=== PATIENT | female | born 1955 | race Caucasian/White ===

== ENCOUNTER 2022-02-20 15:35 | Outpatient (REF) | payer MEDICARE, MEDICAID, SELFPAY ==
--- NOTE | ~2022-02-20 | XR_ITS ---
EXAMINATION: CERVICAL AND THORACIC SPINE X-RAYS CLINICAL INFORMATION: Pain COMPARISON: None TECHNIQUE: 3 views of the cervical spine and 3 views of the thoracic spine FINDINGS: Cervical spine: There is mild 3 mm anterior subluxation of C3 with respect to C4. Bone alignment is otherwise normal. No fracture or dislocation. There is multilevel degenerative spondylosis and degenerative disc disease from C3-C4 to C6-C7. Prevertebral soft tissues are normal. Thoracic spine: There is mild curvature of the lower thoracic spine to the right. Alignment is otherwise normal. There is a mild T10 vertebral body compression fracture, indeterminate age. There is a mild T11 vertebral body compression fracture that appears old. There is multilevel degenerative spondylosis of the mid and lower thoracic spine. Paraspinal soft tissues are unremarkable. XR/XR thoracic spine 3V IMPRESSION: Cervical spine: Multilevel degenerative changes. Thoracic spine: Mild T10 vertebral body compression fracture, age indeterminate. Mild probably old T11 vertebral body compression fracture.
--- NOTE | ~2022-02-20 | XR_ITS ---
EXAMINATION: CERVICAL AND THORACIC SPINE X-RAYS CLINICAL INFORMATION: Pain COMPARISON: None TECHNIQUE: 3 views of the cervical spine and 3 views of the thoracic spine FINDINGS: Cervical spine: There is mild 3 mm anterior subluxation of C3 with respect to C4. Bone alignment is otherwise normal. No fracture or dislocation. There is multilevel degenerative spondylosis and degenerative disc disease from C3-C4 to C6-C7. Prevertebral soft tissues are normal. Thoracic spine: There is mild curvature of the lower thoracic spine to the right. Alignment is otherwise normal. There is a mild T10 vertebral body compression fracture, indeterminate age. There is a mild T11 vertebral body compression fracture that appears old. There is multilevel degenerative spondylosis of the mid and lower thoracic spine. Paraspinal soft tissues are unremarkable. XR/XR cervical spine 3V IMPRESSION: Cervical spine: Multilevel degenerative changes. Thoracic spine: Mild T10 vertebral body compression fracture, age indeterminate. Mild probably old T11 vertebral body compression fracture.
== END 2022-02-20 15:36 | disposition home or self-care (01) ==
LOC: HO.XRAY 15:35
PROVIDERS: PCP Internal Medicine; Visit Provider Nurse Practitioner Family
DX: S22.070A Wedge compression fracture of T9-T10 vertebra, initial encounter for closed fracture (principal); M47.812 Spondylosis without myelopathy or radiculopathy, cervical region; M81.0 Age-related osteoporosis without current pathological fracture; R10.11 Right upper quadrant pain; M79.18 Myalgia, other site
CPT/HCPCS: 72040; 72072; 99202

== ENCOUNTER 2022-03-15 15:00 | Outpatient (REF) | payer MEDICARE, MEDICAID, SELFPAY ==
[2022-03-15 16:50] LABS: Blood Urea Nitrogen 28 mg/dL (9-16); Estimated Glomerular Filt Rate 42
== END 2022-03-15 15:01 | disposition home or self-care (01) ==
LOC: HO.LAB 15:00
PROVIDERS: PCP Internal Medicine; Visit Provider Nurse Practitioner Family
DX: Z01.818 Encounter for other preprocedural examination (principal)
CPT/HCPCS: 36415; 82565; 84520

== ENCOUNTER 2022-03-20 15:08 | Outpatient (REF) | payer MEDICARE, MEDICAID, SELFPAY | END 2022-03-20 15:09 | disposition home or self-care (01) | LOC: HO.CT 15:08 | PROVIDERS: PCP Internal Medicine; Visit Provider Nurse Practitioner Family | DX: Z13.89 Encounter for screening for other disorder (principal) ==

== ENCOUNTER 2022-03-23 13:40 | Outpatient (REF) | payer MEDICARE, MEDICAID, SELFPAY ==
--- NOTE | ~2022-03-23 | CT_ITS ---
EXAMINATION: CT ABDOMEN AND PELVIS WITHOUT AND WITH CONTRAST CLINICAL INFORMATION: Family history of malignant neoplasm of digestive organs COMPARISON: None TECHNIQUE: Multidetector volumetric imaging was performed of the abdomen and pelvis before and after the IV administration of 80 mL of Omnipaque 350 intravenous contrast. Sagittal and coronal reformatted images were obtained on the technologist's workstation. This CT examination was performed using dose optimization techniques as appropriate, variously including the following: *Automated exposure control *Adjustment of mA and/or kV according to patient size (this includes techniques or standardized protocols for targeted exams where dose is matched to indication/reason for exam; i.e. extremities or head) *Use of iterative reconstruction technique DLP: 666 mGy-cm FINDINGS: LUNG BASES: At least 8 small micronodules are seen measuring between 2 and 3 mm in size bilaterally. Al images of all have been saved. The inferior aspect of a left breast implant with some calcifications is seen. Some calcification is seen in the right partially visualized breast. Heart size normal. No pleural effusions. LIVER, GALLBLADDER, AND BILIARY TREE: The liver is mildly enlarged measuring 18.2 cm in greatest cephalocaudad dimension. Attenuation is normal. 2 tiny hypodensities are seen in the liver largest 3 mm (8:13). Statistically these are cysts. No worrisome solid focal hepatic lesion or biliary ductal dilatation is present. The gallbladder is unremarkable with no evidence of radiopaque gallstones, gallbladder wall thickening, or obvious pericholecystic inflammatory changes. PANCREAS: Unremarkable SPLEEN: Unremarkable ADRENAL GLANDS: Unremarkable KIDNEYS AND URETERS: The left kidney is slightly smaller than the right and demonstrates some global cortical thinning. Bilateral renal hypodensities are seen consistent with simple cysts. No suspicious renal masses are seen. The kidneys are normal in size, shape, and attenuation. No hydronephrosis, hydroureter, or calculi seen. No perinephric stranding. BLADDER: Unremarkable GASTROINTESTINAL TRACT: The small and large bowel are unremarkable. The appendix is not identified but there is no evidence of appendicitis.. ABDOMINAL WALL: No significant hernia is appreciated. LYMPH NODES: No retroperitoneal lymphadenopathy. VASCULAR: There is reflux in a slightly dilated left ovarian vein measuring 0.5 cm. There are pelvic varices present, left greater than right. Calcific atherosclerotic changes seen in the aorta and visualized iliofemoral vessels. PELVIC VISCERA: Normal anteverted uterus. An abnormal adnexal mass is not seen. No free intraperitoneal fluid is present. OSSEOUS STRUCTURES: Unremarkable CT/CT abdomen pelvis wo/w IV con IMPRESSION: A worrisome finding is not present to suggest underlying malignancy. Incidental note made of: 1. Tiny micronodules at the lung bases. 2. Mild hepatomegaly with 2 tiny hypodensities, too small to characterize. 3. Bilateral renal cysts. Bosniak class I and need no further imaging or follow-up 4. Reflux in left ovarian vein with pelvic varices. This can be a cause of chronic pelvic pain. If the patient has symptoms of pelvic congestion syndrome, consultation with interventional radiology may be of value. 5. Other incidental findings as described above. 2017 Fleischner Society Recommendations for Lung Nodule(s): Follow-Up based on size (average of long- and short-axis diameters). Use most suspicious nodule for followup. Multiple Solid lung nodules < 6 mm: Follow up management based on most suspicious nodule. In a low-risk patient, no routine follow-up imaging is recommended. In a high-risk patient, a non-contrast Chest CT at 12 months is optional. If performed and the nodule is stable at 12 months, no further follow-up is recommended. These guidelines do not apply to patients younger than 35 years, immunocompromised patients, and patients with cancer. F/u in patients with significant comorbidities as clinically warranted. For lung cancer screening, adhere to Lung-RADS guidelines. Reference: Radiology. 2017 Oct; 284(1):228-243
[2022-03-23] MEDS: iohexoL 350 MG/ML 100 ML INFUS..BTL IV (16:28)
[2022-03-24] MEDS: Barium Sulfate Oral (Vanilla) 450 ML ORAL.SUSP 900 ML PO (19:25)
== END 2022-03-23 13:41 | disposition home or self-care (01) ==
LOC: HO.CT 13:40
PROVIDERS: PCP Internal Medicine; Visit Provider Nurse Practitioner Family
DX: R10.11 Right upper quadrant pain (principal); G89.29 Other chronic pain; Z80.0 Family history of malignant neoplasm of digestive organs
CPT/HCPCS: 74178; Q9967

== ENCOUNTER → 2022-05-04 12:00 | Outpatient (BNVA) | payer MEDICARE, MEDICAID, SELFPAY | PROVIDERS: PCP Internal Medicine; Visit Provider Physician Assistant Medical | DX: F17.210 Nicotine dependence, cigarettes, uncomplicated (principal) | CPT/HCPCS: G0296 ==

== ENCOUNTER 2022-05-16 14:53 | Outpatient (REF) | payer MEDICARE, MEDICAID, SELFPAY ==
--- NOTE | ~2022-05-16 | CT_ITS ---
EXAMINATION: CT CHEST SCREENING CLINICAL INFORMATION: Nicotine dependence. Current smoker. COMPARISON: Abdominal CT performed 03/23/2022. No prior chest CT. TECHNIQUE: Multidetector volumetric CT imaging of the chest is performed without contrast using low dose technique. Additional 2D coronal and sagittal reformatted images and axial 3D maximum intensity projection (MIP) images are generated on the CT workstation. This CT examination was performed using dose optimization techniques as appropriate, variously including the following: *Automated exposure control *Adjustment of mA and/or kV according to patient size (this includes techniques or standardized protocols for targeted exams where dose is matched to indication/reason for exam; i.e. extremities or head) *Use of iterative reconstruction technique DLP: 34 mGy-cm FINDINGS: LUNGS: The central airways are patent. There is no consolidation. No pneumothorax. A few pulmonary nodules are again noted, most as seen on the prior abdominal CT. 1. Right lower lobe 0.3 cm nodule on series 5 image 269, unchanged. 2. 0.3 cm posterior right lower lobe nodule on series 5 image 291. This is unchanged. 3. There are adjacent 0.3 cm nodules in the right lower lobe on series 5 image 348. These are unchanged. 4. 0.3 cm posterior right lower lobe nodule on series 5 image 361. This is unchanged. 5. 0.3 cm left lower lobe nodule on series 5 image 377. This is unchanged. 6. 0.3 cm subpleural left lower lobe nodule on series 5 image 311. This is unchanged. 7. There is a 0.3 cm right upper lobe nodule posteriorly on series 5 image 106 which is not in the [id number] of prior. MEDIASTINUM: Normal heart size. No pericardial effusion. No mediastinal lymphadenopathy. CORONARY ARTERY CALCIFICATION: Present. PLEURA: There is no pleural effusion. No pleural mass or thickening. AXILLA: No lymphadenopathy. Bilateral peripherally calcified breast implants with partial rupture of the left implant. UPPER ABDOMEN: Unremarkable OSSEOUS STRUCTURES: No acute or suspicious osseous abnormality. Mild degenerative change throughout the spine. CT/CT lung screening IMPRESSION: Multiple small pulmonary nodules are seen. The majority of these are unchanged from prior. There is a 0.3 cm right upper lobe nodule which is not in the [id number] of prior. ASSESSMENT: Lung-RADS category 2: Benign RECOMMENDATION: Routine annual low-dose CT screening in 12 months.
== END 2022-05-16 14:54 | disposition home or self-care (01) ==
LOC: HO.CT 14:53
PROVIDERS: PCP Internal Medicine; Visit Provider Physician Assistant Medical
DX: Z12.2 Encounter for screening for malignant neoplasm of respiratory organs (principal); F17.210 Nicotine dependence, cigarettes, uncomplicated
CPT/HCPCS: 71271

== ENCOUNTER → 2022-05-21 13:13 | Outpatient (BNVA) | payer MEDICARE, MEDICAID, SELFPAY | PROVIDERS: PCP Internal Medicine; Visit Provider Nurse Practitioner Family | DX: M81.0 Age-related osteoporosis without current pathological fracture (principal); M54.6 Pain in thoracic spine; M47.812 Spondylosis without myelopathy or radiculopathy, cervical region; M79.18 Myalgia, other site; S22.070D Wedge compression fracture of T9-T10 vertebra, subsequent encounter for fracture with routine healing | CPT/HCPCS: 99212 ==

== ENCOUNTER 2022-08-22 06:03 | Outpatient (REF) | payer MEDICARE, MEDICAID, SELFPAY ==
--- NOTE | ~2022-08-22 | FL_ITS ---
EXAMINATION: XR FLUOROSCOPY WITH IMAGES CLINICAL INFORMATION: M47.812 - Spondylosis without myelopathy or radiculopathy, cervical region COMPARISON: Radiographs cervical spine 02/20/2022 TECHNIQUE: Fluoroscopy Supervised By: Dr. Vidal Cerna. Fluoroscopy Time: 0.2 minutes. Cumulative Dose: 1.04 mGy. DAP: 0.134 Gycm2. Images: 2. FINDINGS: There are spinal needles overlying the right lateral masses cervical spine C3, C4, and C5. There is contrast in the paraspinal soft tissues and nerve sheaths. No visible vascular communication. Multilevel degenerative disc changes cervical spine again seen with borderline spondylolisthesis is again seen more similar to prior imaging 2021. FL/FL guidance in treatment room IMPRESSION: Fluoroscopy for pain management procedure.
== END 2022-08-22 06:04 | disposition home or self-care (01) ==
LOC: CF 06:03
PROVIDERS: Visit Provider Internal Medicine
DX: M47.812 Spondylosis without myelopathy or radiculopathy, cervical region (principal)
CPT/HCPCS: 64490; 64491

== ENCOUNTER → 2022-08-24 11:03 | Outpatient (BNVA) | payer MEDICARE, MEDICAID, SELFPAY | PROVIDERS: PCP Internal Medicine; Visit Provider Nurse Practitioner Family | DX: M81.0 Age-related osteoporosis without current pathological fracture (principal); M47.812 Spondylosis without myelopathy or radiculopathy, cervical region; M54.6 Pain in thoracic spine; M79.18 Myalgia, other site; M47.22 Other spondylosis with radiculopathy, cervical region; S22.070D Wedge compression fracture of T9-T10 vertebra, subsequent encounter for fracture with routine healing | CPT/HCPCS: Q3014 ==

== ENCOUNTER 2022-09-28 12:58 | Outpatient (REF) | payer MEDICARE, MEDICAID, SELFPAY ==
--- NOTE | ~2022-09-28 | MR_ITS ---
MR CERVICAL SPINE WITHOUT CONTRAST CLINICAL INFORMATION: Spondylosis with radiculopathy. COMPARISON: None available. TECHNIQUE: MRI of the cervical spine was obtained using routine sequences without contrast. FINDINGS: Intracranially, there may be a partially imaged aneurysm on image 10 of series 3 measuring up to 4.5 mm in size associated with a possible persistent trigeminal artery that would be better assessed with a CTA or MRA of the head. This could alternatively reflect vascular tortuosity. There is anterior subluxation of C3 on C4. Moderate disc volume loss at C5-C6 and C6-C7. Mild disc volume loss the remaining cervical levels. Modic type I endplate signal changes at C3-C4. No additional bone marrow edema. There are no acute fractures. The craniocervical junction is unremarkable. Cervical arterial flow voids are maintained. There are no significant extraspinal soft tissue findings. No cord signal changes. C2-C3: Disc contour is normal. Advanced right-sided facet arthropathy. No central canal stenosis. Mild right-sided foraminal encroachment C3-C4: Anterior subluxation. Disc osteophyte and ligamentum flavum thickening result in moderate to severe central canal stenosis and flattening of the cervical cord. Advanced uncovertebral joint hypertrophy and hypertrophic facet arthropathy result in severe left and moderate to severe right foraminal stenosis. C4-C5: Disc osteophyte and ligamentum flavum thickening result in mild to moderate central canal stenosis. Advanced uncovertebral joint hypertrophy and hypertrophic facet arthropathy result in severe right-sided foraminal stenosis. C5-C6: Disc osteophyte and ligamentum flavum thickening result in moderate central canal stenosis and flattening of the cord. Advanced uncovertebral joint hypertrophy and hypertrophic facet arthropathy result in severe left and mild right foraminal stenosis. C6-C7: Disc osteophyte and ligamentum flavum thickening result in mild to moderate central canal stenosis. Advanced uncovertebral joint hypertrophy and hypertrophic facet arthropathy result in moderate to severe bilateral foraminal stenosis. C7-T1: Slight annular disc bulge without central canal stenosis. Uncovertebral joint spurring and facet arthropathy result in mild bilateral foraminal encroachment. MR/MR cervical spine wo con IMPRESSION: - Intracranially, there may be a partially imaged aneurysm measuring up to 4.5 mm in size associated with a possible persistent trigeminal artery that would be better assessed with a CTA or MRA of the head. This could alternatively reflect vascular tortuosity. - Advanced multilevel cervical spondylosis. Spondylitic changes result in moderate to severe central canal stenosis at C3-C4, moderate central canal stenosis at C5-C6, and mild to moderate central canal stenosis at C4-C5 and C6-C7. Advanced spondylitic changes result in varying degrees of moderate to severe foraminal stenosis bilaterally throughout the cervical spine as described. There is anterior subluxation of C3 on C4 in the setting of advanced facet arthropathy at this level.
== END 2022-09-28 12:59 | disposition home or self-care (01) ==
LOC: HO.MRI 12:58
PROVIDERS: Visit Provider Nurse Practitioner Family
DX: M47.22 Other spondylosis with radiculopathy, cervical region (principal); M81.0 Age-related osteoporosis without current pathological fracture; S22.070A Wedge compression fracture of T9-T10 vertebra, initial encounter for closed fracture
CPT/HCPCS: 72141

== ENCOUNTER 2022-10-22 11:32 | Outpatient (REF) | payer MEDICARE, MEDICAID, SELFPAY | END 2022-10-22 11:33 | disposition home or self-care (01) | LOC: HO.HOSX 11:32 | PROVIDERS: PCP Internal Medicine; Visit Provider Physician Assistant | DX: M54.2 Cervicalgia (principal) | CPT/HCPCS: 99202 ==

== ENCOUNTER 2022-10-29 10:49 | Outpatient (REF) | payer MEDICARE, MEDICAID, SELFPAY ==
--- NOTE | ~2022-10-29 | XR_ITS ---
EXAMINATION: XR CERVICAL SPINE CLINICAL INFORMATION: Spondylosis with radiculopathy COMPARISON: MRI 09/28/2022 TECHNIQUE: 5 views of the cervical spine were obtained. FINDINGS: Moderate to severe multilevel degenerative disc disease and facet arthropathy with slight anterolisthesis of C3-C4. No acute osseous abnormality. No prevertebral soft tissue swelling. XR/XR cervical spine 4V IMPRESSION: Moderate to severe multilevel degenerative disc disease and facet arthropathy with slight anterolisthesis of C3-C4. No change.
== END 2022-10-29 10:50 | disposition home or self-care (01) ==
LOC: HO.XRAY 10:49
PROVIDERS: PCP Internal Medicine; Visit Provider Physician Assistant
DX: M54.2 Cervicalgia (principal)
CPT/HCPCS: 72050

== ENCOUNTER 2022-11-21 17:02 | Outpatient (REF) | payer MEDICARE, MEDICAID, SELFPAY ==
--- NOTE | ~2022-11-21 | MR_ITS ---
EXAMINATION: MR ANGIOGRAPHY BRAIN WITHOUT CONTRAST CLINICAL INFORMATION: Possible aneurysm on recent MRI cervical spine COMPARISON: MRI cervical spine 09/28/2022 TECHNIQUE: Noncontrast MRA of the head was performed. FINDINGS: Left intradural vertebral artery terminates as typed. The intradural vertebral arteries and proximal basilar artery are diminutive related to the presence of a persistent right trigeminal artery. Normal caliber of the distal basilar artery with normal origins of the SCA and left BACK UP MACHINE OPERATOR complexes. The right BACK UP MACHINE OPERATOR complex is in origin. No significant narrowing of the distal BACK UP MACHINE OPERATOR complexes. No significant arterial narrowing in the anterior circulation. No intracranial aneurysm is identified MR/MR angio head wo con IMPRESSION: Persistent right trigeminal artery. No intracranial aneurysm is identified
== END 2022-11-21 17:03 | disposition home or self-care (01) ==
LOC: HO.MRI 17:02
PROVIDERS: PCP Internal Medicine; Visit Provider Nurse Practitioner Family
DX: I67.1 Cerebral aneurysm, nonruptured (principal); M48.02 Spinal stenosis, cervical region; M54.2 Cervicalgia
CPT/HCPCS: 70544

== ENCOUNTER 2023-01-12 10:01 | Emergency (ER) | payer MEDICARE, MEDICAID, SELFPAY ==
--- NOTE | 2023-01-12 07:26 | ECG_ITS ---
Test Reason : chest pain Blood Pressure : / mmHG Vent. Rate : 084 BPM Atrial Rate : 084 BPM P-R Int : 154 ms QRS Dur : 076 ms QT Int : 366 ms P-R-T Axes : 066 051 051 degrees QTc Int : 432 ms Normal sinus rhythm Possible Left atrial enlargement Borderline ECG When compared with ECG of 12-JAN-2023 10:10, No significant change was found Referred By: China Thao Electronically Signed By:TIERRA HOLT
--- NOTE | 2023-01-12 10:01 | ECG_ITS ---
Test Reason : chest pain Blood Pressure : / mmHG Vent. Rate : 090 BPM Atrial Rate : 090 BPM P-R Int : 144 ms QRS Dur : 080 ms QT Int : 362 ms P-R-T Axes : 064 051 060 degrees QTc Int : 442 ms Normal sinus rhythm Possible Left atrial enlargement Nonspecific ST abnormality Abnormal ECG No previous ECGs available Referred By: Generic ED Physician Electronically Signed By:TIERRA HOLT
[2023-01-12 10:18] VITALS: BP 159/112; PULSE 94; RESP 18; TEMP 36.4; O2SAT 98; BMI 21.3
--- NOTE | 2023-01-12 10:30 | ED.CHESTPAIN ---
HPI - Chest Pain General Chief Complaint: Chest Pain Stated Complaint: CHEST PAIN Time Seen by Provider: 01/12/23 10:09 Source: patient Mode of arrival: ambulatory History of Present Illness HPI narrative: 67-year-old female who presents with left upper outer chest discomfort that involves her left arm and started yesterday but she denies any fever, chills, nausea, vomiting, shortness of breath and denies any falls or traumatic injuries and denies any exercises which may have contributed to the symptoms. Patient denies any association with deep inspiration but is able to reproduce the pain on palpation. Patient states that she sees pain management for her bones . Related Data Home Medications Medication Instructions Recorded Confirmed amlodipine 5 mg tablet 5 mg PO DAILY 02/20/22 02/20/22 buprenorphine 8 mg-naloxone 2 mg 10 mg sublingual DAILY 02/20/22 02/20/22 sublingual film (Suboxone) levothyroxine 75 mcg tablet 75 mcg PO DAILY 02/20/22 02/20/22 naproxen 500 mg tablet 500 mg PO BID 02/20/22 02/20/22 oxycodone 5 mg tablet 5 mg PO Q4H PRN severe pain 02/20/22 02/20/22 tizanidine 2 mg tablet 2 mg PO TID PRN muscle spasm 02/20/22 02/20/22 alendronate 70 mg tablet 70 mg PO QWEEK 08/24/22 Allergies Allergy/AdvReac Type Severity Reaction Status Date / Time cephalexin Allergy Unknown Unknown Verified 10/22/22 11:47 keflex Allergy Rash Uncoded 08/22/22 10:39 Review of Systems Review of Systems: Pertinent positives and negatives as stated in HPI PMFSH Past Medical History Source: nursing notes reviewed Medical History Abdominal pain, chronic, right upper quadrant Bipolar 1 disorder Cervical spondylosis Chronic headache disorder Chronic hepatitis C without mention of hepatic coma Chronic pelvic pain in female Compression fracture of T10 vertebra Degenerative arthritis Essential hypertension Family history of liver cancer Family history of pancreatic cancer Hepatitis A antibody positive Hypothyroidism Irritable bowel syndrome Nicotine dependence, cigarettes, uncomplicated Opioid dependence Osteoporosis Renal cyst Rupture of implant of left breast Subclinical hyperthyroidism Thyroid nodule Surgical History History of appendectomy History of breast implant History of History of liver biopsy (~2006) History of thyroidectomy, total (~2021) Social History Social History Patient Tobacco Use Status: Current someday Tobacco user Tobacco use type: Cigarette Cigarettes Per Day: 1 Years Smoked: (onset 15yo, 1/2 ppd x 52yrs, now occasional cig - 25PYH) Substance Use Type: Marijuana Advance Directives: No Advance Directives Information Provided: Yes Physical Exam Vital Signs: Vital Signs: Last Vital Signs Temp 97.5 F 01/12/23 10:18 Pulse 86 01/12/23 11:33 Resp 18 01/12/23 11:33 BP 156/114 H 01/12/23 11:33 Pulse Ox 96 01/12/23 11:33 O2 Del Method Room Air 01/12/23 11:33 BMI result Body Mass Index 21.3 VITAL SIGNS: Reviewed. GENERAL: Well developed, well nourished, in no acute distress. HEAD: Normocephalic/atraumatic EYES: PERRLA, EOMI EARS: Ext canals without abnormality NOSE: Nares patent bilateral OROPHARYNX: no oral lesions noted, posterior pharynx clear NECK: Supple, no adenopathy LUNGS: Normal breath sounds. No adventitious sounds or accessory muscle use. SpO2<96>; CHEST WALL: There is no erythema or induration at the left upper outer portion of the chest on palpation no masses are appreciated, however there is reproducible pain on palpation at that area. CARDIOVASCULAR: Regular rate and rhythm without noted murmurs ABDOMEN: Soft, non-tender, non-distended with bowel sounds. MUSCULOSKELETAL: No tenderness, deformities, or effusions noted on gross inspection. EXTREMITIES: No cyanosis, clubbing or edema. SKIN: Inspection of the skin reveals no rashes NEUROLOGIC: Alert and oriented x 4. Strength and sensation to light touch were grossly intact x 4. Medications Administered Discontinued Medications Generic Name Dose Route Start Last Admin Trade Name Freq PRN Reason Stop Dose Admin Acetaminophen 975 mg 01/12/23 11:14 01/12/23 11:42 Acetaminophen 325 Mg Tablet PO 01/12/23 11:15 Not Given ONCE ONE Ibuprofen 400 mg 01/12/23 11:14 01/12/23 11:42 Ibuprofen 400 Mg Tablet PO 01/12/23 11:15 Not Given ONCE ONE Medical Decision Making Medical Decision Making [facility] Narrative: 67-year-old female who presents with chest wall discomfort, atypical for any cardiac etiology but is noted to have elevated blood pressure and reported that she did take her blood pressure medication this morning. Patient is also noted to be a smoker. Low clinical suspicion for pneumonia or pneumothorax. I reviewed all investigations and there is no leukocytosis or left shift, patient is afebrile and otherwise there is no anemia or thrombocytopenia. Coagulation studies are within normal limits. Chemistry indices are not significant for either LOGAN or electrolytes/liver enzyme abnormalities and troponin level is undetectable. The undetectable troponin in conjunction with nonischemic EKG I have low clinical suspicion for primary ACS in do feel that this is musculoskeletal in nature. Patient was offered combination analgesics as well as a chest x-ray and she declines all and has decided that she is going to sign herself out against medical advice because she does not want await here all day . In my interpretation patient may have musculoskeletal pain, but there is a possibility of pulmonary mass given smoking history but patient did not want to stay for chest x-ray evaluation. Differential Diagnosis Differential Diagnoses: The differential diagnosis associated with the presentation includes Please see the discussion above Admission/Observation Consideration of admission/observation: Escalation of care including admission/observation considered Please see the discussion above Lab Data [facility] Lab Attestation statement: I reviewed the patient's lab results. Please see the discussion above 01/12/23 10:29 01/12/23 10:29 Labs: Lab Results 01/12/23 01/12/23 Range/Units 10:29 10:39 WBC 6.5 (4.8-10.8) X10*3/uL RBC 4.10 L (4.20-5.50) X10*6/uL Hgb 13.2 (12.0-16.0) g/dl Hct 38.8 (37.0-47.0) % MCV 94.6 (80.0-98.0) fL MCH 32.2 (27.0-33.0) pg MCHC 34.0 (31.0-35.0) g/dl RDW 12.7 (11.0-16.0) % Plt Count 282 (160-400) X10*3/uL MPV 8.9 L (9.4-12.3) fL Immature Gran % (Auto) 0.2 (0.0-0.4) % Neut % (Auto) 61.0 (45-73) % Lymph % (Auto) 31.0 (20-40) % [place] % (Auto) 6.2 (2-11) % Eos % (Auto) 1.1 (0-4) % Baso % (Auto) 0.5 (0-2) % Lymph # (Auto) 2.0 (1.2-4.9) X10*3/uL [place] # (Auto) 0.4 (0.1-1.2) X10*3/uL Eos # (Auto) 0.1 (0.0-0.4) X10*3/uL Baso # (Auto) 0.0 (0.0-0.2) X10*3/uL Abs Immat Gran (auto) 0.01 (0.00-0.03) X10*3/uL Absolute Neuts (auto) 4.0 (2.0-8.3) x10*3/uL Absolute Nucleated RBC 0.000 (0.0-0.012) X10*3/uL Nucleated RBC % (auto) 0.0 (0.0-0.2) /100WBC PT 11.8 (11.1-13.3) SEC INR 1.0 (0.9-1.1) Sodium 141 (135-145) mmol/L Potassium 3.9 (3.3-5.1) mmol/L Chloride 107 (96-108) mmol/L Carbon Dioxide 26 (22-29) mmol/L Anion Gap 12 (12-20) BUN 17 H (9-16) mg/dL Creatinine 1.07 (0.5-1.4) mg/dL Estim Creat Clear Calc 42.8 Estimated GFR 51 Random Glucose 111 (60-115) mg/dL Calcium 9.7 (8.4-10.2) mg/dL Total Bilirubin 0.4 (0.0-1.0) mg/dL AST 19 (5-31) U/L ALT 10 (0-31) U/L Alkaline Phosphatase 51 (39-117) U/L Troponin I High Sens < 2.7 (<3.5-17.0) ng/L Total Protein 7.7 (6.5-8.0) g/dL Albumin 4.5 (3.5-5.0) g/dL Independent Interpretation I performed an independent interpretation of an: EKG Interpretation: Normal sinus rhythm, HR-84, no STEMI, WA/QRS/QTC is within normal limits External Record Review External record reviewed: Outpatient record, Prior outpatient labs and Prior outpatient radiology Chronic Conditions Patient?s care impacted by: Hypertension Critical Care Time Critical Care Time Critical Care Time: Yes Total Critical Care Time: 30 Attestation: I personally attest to this time spent taking care of the patient. Discharge Plan Discharge Clinical Impression: Chest pain, Elevated blood pressure reading Patient Disposition: Left Against Medical Advice Instructions: Chest Wall Pain (ED) Additional Instructions: 1. Follow-up with your primary care doctor. Return to the ER for any worsening symptoms. Prescriptions: No Action amlodipine 5 mg tablet 5 mg PO DAILY buprenorphine-naloxone [Suboxone] 8-2 mg film 10 mg sublingual DAILY naproxen 500 mg tablet 500 mg PO BID tizanidine 2 mg tablet 2 mg PO TID PRN (Reason: muscle spasm) levothyroxine 75 mcg tablet 75 mcg PO DAILY oxycodone 5 mg tablet 5 mg PO Q4H PRN (Reason: severe pain) alendronate 70 mg tablet 70 mg PO QWEEK Referrals: Jaqueline Lind LM [Primary Care Provider] - Interventions: ED Discharge Assessment Last Done: 01/12/23 11:57
[2023-01-12 10:34] LABS: MANUAL DIFF FLAG NO
[2023-01-12 10:35] LABS: Basophils Percent Auto 0.5 % (0-2); Eosinophils Absolute Auto 0.1 X10*3/uL (0.0-0.4); Eosinophils Percent Auto 1.1 % (0-4); Hematocrit 38.8 % (37.0-47.0); Hemoglobin 13.2 g/dl (12.0-16.0); Imm Gran Abs Auto 0.01 X10*3/uL (0.00-0.03); Imm Gran Pct Auto 0.2 % (0.0-0.4); Mean Corpuscular Hemoglobin 32.2 pg (27.0-33.0); Mean Corpuscular Volume 94.6 fL (80.0-98.0); Mean Platelet Volume 8.9 fL (9.4-12.3); Monocytes Absolute Auto 0.4 X10*3/uL (0.1-1.2); Monocytes Percent Auto 6.2 % (2-11); Platelet Count 282 X10*3/uL (160-400); Red Cell Distribution Width 12.7 % (11.0-16.0); White Blood Count 6.5 X10*3/uL (4.8-10.8)
--- NOTE | 2023-01-12 10:45 | PC.NURSE ---
iv established, labs drawn and sent. respirations even and unlabored. NSR on monitor.
[2023-01-12 10:50] LABS: Prothrombin Time 11.8 SEC (11.1-13.3)
[2023-01-12 10:52] LABS: Alanine Aminotransferase 10 U/L (0-31); Albumin Level 4.5 g/dL (3.5-5.0); Alkaline Phosphatase 51 U/L (39-117); Anion Gap 12 (12-20); Aspartate Amino Transferase 19 U/L (5-31); Bilirubin Total 0.4 mg/dL (0.0-1.0); Blood Urea Nitrogen 17 mg/dL (9-16); Calcium 9.7 mg/dL (8.4-10.2); Carbon Dioxide 26 mmol/L (22-29); Chloride 107 mmol/L (96-108); Creatinine Clr Calc Pharmacy 42.8; Estimated Glomerular Filt Rate 51; Glucose Random 111 mg/dL (60-115); Potassium 3.9 mmol/L (3.3-5.1); Sodium 141 mmol/L (135-145); Total Protein 7.7 g/dL (6.5-8.0)
[2023-01-12 11:01] LABS: Troponin-I High Sensitivity < 2.7 ng/L (<3.5-17.0)
[2023-01-12 11:33] VITALS: BP 156/114; PULSE 86; RESP 18; O2SAT 96
--- NOTE | 2023-01-12 11:34 | PC.NURSE ---
pt refused pain medications and xrays i'm not having a heart attack that's all I was worried about, I can go home now .
--- NOTE | 2023-01-12 11:52 | PC.NURSE ---
fully dressed in room, still endorsing the desire to leave. educated on the fact it will be against medical advice, pt reports she will call her primary care provider on saturday. signed AMA paperwork, provider aware.
== END 2023-01-12 11:57 | disposition left against medical advice (07) ==
PROVIDERS: Emergency Provider Student in an Organized Health Care Education/Training Program
DX: R07.9 Chest pain, unspecified (principal); I10 Essential (primary) hypertension; E03.9 Hypothyroidism, unspecified
CPT/HCPCS: 36415; 80053; 84484; 85025; 85610; 93005; 99284; 99285

== ENCOUNTER 2023-01-22 15:13 | Outpatient (AMB) | payer MEDICARE, MEDICAID, SELFPAY ==
--- NOTE | 2023-01-22 15:14 | MHC.OFFVIS ---
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 Patient had recent ER visit for chest pain, left ER unsatisfied and did not complete work up that was offered to her. Patient presents with significant anterior shoulder pain with painful internal rotations. Cervical extension and flexion as well as lateral rotations continue to cause her significant neck pain. Shoulder symptoms exacerbate her neck pain. Unfortunately, she had very minimal relief with cervical MBBs. Patient will return to [facility] for potential anterior cervical fusion at C3-4. We will proceed with shoulder xray and potential therapeutic bilateral shoulder steroid injections. Patient reports she recently underwent cerebral angiography by Dr. Chapman to follow up regarding persistent right trigeminal artery finding on Head MRI this summer and was advised to follow up with another Head MRI in 10-12 months. PRIOR: Patient presents today to assess response to Bilateral Diagnostic C4-C5-C6 MBB on 08/22/22. Patient reports 20% pain relief for day of procedure with minimal improvement in her axial cervical pain but notes mild improvement with cervical extension. Patient reports left arm weakness with funny and numbness with tingling sensations in her left upper extremity for past few weeks. She reports following up for this with her PCP and was told cardiac malik she was ok. Patient is right hand dominant. Reports difficulty performing her daily activities, sleep and notes daily chronic pain has been negatively affecting her mood with increasing depressing thoughts and anxiety. Denies SI/HI or hallucinations. We will proceed with cervical spine MRI for further evaluation of her left arm weakness with paresthesia sensations. Denies any recent cough, cold, infection, fever or other significant changes in medical history since last office visit. PRIOR: Patient presents today for follow up and discuss cervical and thoracic xrays and abdomen pelvis CT scan results. Patient continues to report significant neck and mid back pain with any movement, pulling, reaching or bending. Patient reports neck pain is worse than thoracic pain. Cervical and thoracic x rays were obtained after patient's last visit and showed multilevel degenerative changes of the cervical spine from C3-C4 to C6-C7 and mild T10 vertebral body compression fracture, age indeterminate with probably old T11 vertebral body compression fracture. Patient reports most of her pain is localized at upper and lower cervical paraspinal tenderness with radiation of pain to her upper and mid thoracic spine. Denies radiation of cervical pain nto her shoulders or arms bilaterally. Patient is interested to undergo diagnostic cervical medial branch blocks for potential peripheral nerve stimulation with SPRINT as well RFA or therapeutic injections. Patient is leaving to [place] in June and is hoping diagnostic injections will be completed prior to her vacation. She denies any fever, weight changes, dizziness, visual disturbances, weakness, gait problems, bowel or bladder incontinence or saddle anesthesia. We also reviewed abd/pelvis CT scan results and these are noted below. A worrisome finding is not present to suggest underlying malignancy, given family history of GI cancers. Patient was seen by [facility] and was qualified for LDCT for lung cancer screening which she completed on 05/16/22. Patient reports she is working towards smoking cessation. PRIOR: Patient is a pleasant 67 years old female with a history of osteoporosis, compression fracture T10, chronic thoracic back pain, bilateral breast implants, chronic hepatitis C and hepatitis A, and chronic right sided upper quadrant abdominal pain, presents today for evaluation of thoracic pain of many years. Patient underwent total thyroidectomy on 10/02/21 with improved blood pressure and TSH levels and reports intermittent fatigue. She was referred to us by her PCP for potential corticosteroids injections. Patient reports she is being scheduled for a repeat bone scan. She denies previous back surgery or injections. Her main concern is upper back pain and axial neck pain without radiculopathy. Patient describes her pain as localized tenderness in lower neck to upper thoracic regions with mild tenderness along the right costal margin and upper right back pain with tenderness at upper and mid thoracic levels. She denies any recent trauma, falls, or injury. Reports history of back injury while working in a [employer] service about 10 years ago. She has a stable compression fracture of T10 noted in 10/2019 per referral notes. Patient describes her pain as constant aching, spasming, tiring, exhausting, and throbbing. Pain increases with any activity or weather changes and has affected every aspect of her life, including daily activities, mood, sleep, social interactions and quality of life. She takes Tylenol, lidocaine patches and heating pad and is also on Suboxone 8 mg through [facility] for opioid addiction. Reports she is slowly weaning off Suboxone. Patient is currently active with PT and has tried cupping through [facility]. She notes her pain worsens with PT. Patient denies fever, weight changes, dizziness, shortness of breaths, pain on inspiration, chest pain, tightness or heart palpitations, bowel or bladder incontinence or saddle anesthesia. Patient also reports chronic right sided upper quadrant pain and several years of nausea and vomiting episodes with fatty and spicy foods. She has been avoiding dairy products, fried, junk and spicy foods and has noticed some alleviation of symptoms. Patient reports her father of pancreatic and liver cancer after having right sided pain for a few years and went to have gallbladder surgery only to find out that he had end stage of these cancers. She is anxious and concerned that no abdominal pain work up has been done and reports multiple ER visits in the past. Per referral notes, patient has been followed at [facility] for several years for RUQ pain and they urged her to follow up with her GI in 2013. Cervical and thoracic x rays were obtained today and showed multilevel degenerative changes of the cervical spine from C3-C4 to C6-C7 and mild T10 vertebral body compression fracture, age indeterminate with probably old T11 vertebral body compression fracture. Patient denies any localized tenderness at T10-T11 and has muscle tenderness of upper and lower cervical muscles and paraspinal tenderness of the upper and mid thoracic spine. [facility] Medical History Abdominal pain, chronic, right upper quadrant Bipolar 1 disorder Cervical spondylosis Chronic headache disorder Chronic hepatitis C without mention of hepatic coma Chronic pelvic pain in female Compression fracture of T10 vertebra Degenerative arthritis Essential hypertension Family history of liver cancer Family history of pancreatic cancer Hepatitis A antibody positive Hypothyroidism Irritable bowel syndrome Nicotine dependence, cigarettes, uncomplicated Opioid dependence Osteoporosis Renal cyst Rupture of implant of left breast Subclinical hyperthyroidism Thyroid nodule Surgical History History of appendectomy History of breast implant History of History of liver biopsy (~2006) History of thyroidectomy, total (~2021) Social History Patient Tobacco Use Status: Current someday Tobacco user Tobacco use type: Cigarette Cigarettes Per Day: 1 Years Smoked: (onset 15yo, 1/2 ppd x 52yrs, now occasional cig - 25PYH) Substance Use Type: Marijuana Review of Systems Const All systems reviewed & are unremarkable except as noted in HPI and below ENT Reports Normal hearing present Neuro Reports Normal hearing present, Denies Abnormal speech present and Denies confusion Psych Denies confusion Physical Exam Vital Signs: Last Vital Signs Pulse 88 01/22/23 15:21 BP 159/98 H 01/22/23 15:21 Pulse Ox 97 01/22/23 15:21 Oxygen Delivery Method Room Air 01/22/23 15:21 BMI result Body Mass Index 19.8 Const General: cooperative, alert, awake and in distress (due to pain) moderate; No confusion Nutritional Appearance: well nourished and thin Orientation/consciousness: patient oriented x3 and No confusion HEENT Head: Yes normal to inspection and Yes normocephalic Ears: hearing grossly normal bilaterally Face and sinus: Yes normal facial exam and Yes face symmetric Eyes General: appearance normal, both eyes and all related structures Neck Other: Limited cervical ROM in all planes, especially with right lateral rotation. Reports increased pain with cervical extension and flexion. Spurling compression test is equivocal. Pain is unchanged by Spurling maneuver with retraction. Elvey's tension test positive on the left with pain radiating to shoulder and LUE with numbness and tingling. Lhermitte's test was negative. DTR intact, +1 left +2 rightl. Patient demonstrated 5/5 right and 4/5 left motor strength of bilateral upper extremities. 2 + radial pulses. No clonus. Gait is normal. Neck: Yes normal visual inspection, Yes no lymphadenopathy, Yes supple, No anterior neck swelling, Yes no JVD and No prominent dorsocervical fat pad Resp Effort & Inspection: normal respiratory effort, able to speak in complete sentences, no cough and symmetric chest movement Cardio Jugular venous distension: no JVD Rate: regular rate Bruits: no carotid bruits Peripheral pulses: Peripheral pulses 2+ throughout GI Inspection: Yes normal to inspection and No distended Palpation (GI): Soft to palpation and nontender Back/Spine/Pelvis Cervical Spine: loss of normal cervical lordosis, cervical muscular tenderness, pain with cervical ROM, cervical spasm, No Cervical spine tenderness and No step off deformity Thoracic/Lumbar Spine: thoracic and lumbar spine normal to inspection, Thoracic/lumbar spine scar(s), Lasegue's sign negative, straight leg raise negative bilaterally, pain with thoraco-lumbar ROM, No paraspinal muscle tenderness, thoraco-lumbar ROM limited, No thoracic spinal tenderness and No lumbar spinal tenderness Skin Wounds: no wounds Neuro General: patient oriented x3, gait normal, moves all extremities, CN's II-XI intact bilaterally and No confusion Cranial nerves: Yes Normal hearing present Cognition (Neuro): normal cognition Speech: No Abnormal speech present Gait exam (Neuro): Normal gait present Motor exam (neuro): no tremor noted and abnormal movements noted Extrem General: Yes capillary refill normal, Yes no clubbing, cyanosis or edema and Yes no calf tenderness Right upper extremity: shoulder/upper arm (Pain with internal rotation, +TTP in anterior aspects) Details: normal to inspection and tenderness Location: of the clavicle and of the A-C joint; no swelling and no crepitus Left upper extremity: shoulder/upper arm (Pain with internal rotation, +TTP in anterior aspects) Details: tenderness Location: of the clavicle, of the A-C joint and over the biceps tendon; no swelling and no crepitus Psych Appearance: grossly normal Mental Status: mental status grossly normal Speech and movement: Normal speech and movement present and Clear speech present Affect: normal affect Attitude: cooperative Thought process: Normal thought process present Thought content: Normal thought content present Insight: Good insight present (Psych) Judgement: Good judgement present (Psych) Results Reviewed Results Reviewed: CERVICAL AND THORACIC SPINE X-RAYS 02/20/22 FINDINGS: Cervical spine: There is mild 3 mm anterior subluxation of C3 with respect to C4. Bone alignment is otherwise normal. No fracture or dislocation. There is multilevel degenerative spondylosis and degenerative disc disease from C3-C4 to C6-C7. Prevertebral soft tissues are normal. Thoracic spine: There is mild curvature of the lower thoracic spine to the right. Alignment is otherwise normal. There is a mild T10 vertebral body compression fracture, indeterminate age. There is a mild T11 vertebral body compression fracture that appears old. There is multilevel degenerative spondylosis of the mid and lower thoracic spine. Paraspinal soft tissues are unremarkable. IMPRESSION: Cervical spine: Multilevel degenerative changes. Thoracic spine: Mild T10 vertebral body compression fracture, age indeterminate. Mild probably old T11 vertebral body compression fracture. XR CERVICAL SPINE 10/29/22 CLINICAL INFORMATION: Spondylosis with radiculopathy COMPARISON: MRI 09/28/2022 FINDINGS: Moderate to severe multilevel degenerative disc disease and facet arthropathy with slight anterolisthesis of C3-C4. No acute osseous abnormality. No prevertebral soft tissue swelling. IMPRESSION: Moderate to severe multilevel degenerative disc disease and facet arthropathy with slight anterolisthesis of C3-C4. No change. MR CERVICAL SPINE WITHOUT CONTRAST 09/28/22 CLINICAL INFORMATION: Spondylosis with radiculopathy. FINDINGS: Intracranially, there may be a partially imaged aneurysm on image 10 of series 3 measuring up to 4.5 mm in size associated with a possible persistent trigeminal artery that would be better assessed with a CTA or MRA of the head. This could alternatively reflect vascular tortuosity. There is anterior subluxation of C3 on C4. Moderate disc volume loss at C5-C6 and C6-C7. Mild disc volume loss the remaining cervical levels. Modic type I endplate signal changes at C3-C4. No additional bone marrow edema. There are no acute fractures. The craniocervical junction is unremarkable. Cervical arterial flow voids are maintained. There are no significant extraspinal soft tissue findings. No cord signal changes. C2-C3: Disc contour is normal. Advanced right-sided facet arthropathy. No central canal stenosis. Mild right-sided foraminal encroachment C3-C4: Anterior subluxation. Disc osteophyte and ligamentum flavum thickening result in moderate to severe central canal stenosis and flattening of the cervical cord. Advanced uncovertebral joint hypertrophy and hypertrophic facet arthropathy result in severe left and moderate to severe right foraminal stenosis. C4-C5: Disc osteophyte and ligamentum flavum thickening result in mild to moderate central canal stenosis. Advanced uncovertebral joint hypertrophy and hypertrophic facet arthropathy result in severe right-sided foraminal stenosis. C5-C6: Disc osteophyte and ligamentum flavum thickening result in moderate central canal stenosis and flattening of the cord. Advanced uncovertebral joint hypertrophy and hypertrophic facet arthropathy result in severe left and mild right foraminal stenosis. C6-C7: Disc osteophyte and ligamentum flavum thickening result in mild to moderate central canal stenosis. Advanced uncovertebral joint hypertrophy and hypertrophic facet arthropathy result in moderate to severe bilateral foraminal stenosis. C7-T1: Slight annular disc bulge without central canal stenosis. Uncovertebral joint spurring and facet arthropathy result in mild bilateral foraminal encroachment. IMPRESSION: - Intracranially, there may be a partially imaged aneurysm measuring up to 4.5 mm in size associated with a possible persistent trigeminal artery that would be better assessed with a CTA or MRA of the head. This could alternatively reflect vascular tortuosity. - Advanced multilevel cervical spondylosis. Spondylitic changes result in moderate to severe central canal stenosis at C3-C4, moderate central canal stenosis at C5-C6, and mild to moderate central canal stenosis at C4-C5 and C6-C7. Advanced spondylitic changes result in varying degrees of moderate to severe foraminal stenosis bilaterally throughout the cervical spine as described. There is anterior subluxation of C3 on C4 in the setting of advanced facet arthropathy at this level. Assessment & Plan Assessment & Plan (1) Bilateral shoulder pain: Code(s): M25.511 - Pain in right shoulder; M25.512 - Pain in left shoulder (2) Cervical radiculopathy due to degenerative joint disease of spine: Code(s): M47.22 - Other spondylosis with radiculopathy, cervical region (3) Cervical spondylosis: Code(s): M47.812 - Spondylosis without myelopathy or radiculopathy, cervical region (4) Myofascial pain: Code(s): M79.18 - Myalgia, other site Plan 1. Bilateral shoulder xray to assess degenerative changes prior to any interventional treatments for anterior shoulder pain. 2. Follow up with [facility] as planned. Patient is aware to call if pain worsens or if she develops any red flag symptoms to seek emergency care. All questions and concerns have been answered. Follow up for xray results and sooner if needed. Orders: Orders XR shoulder RT min 2V Today M25.511 - Pain in right shoulder, M25.512 - Pain in left shoulder XR shoulder LT min 2V Today M25.511 - Pain in right shoulder, M25.512 - Pain in left shoulder Coding Level of Care Code Est Pt Level 4 (71899) Diagnoses Bilateral shoulder pain M25.511; M25.512 Cervical radiculopathy due to degenerative joint disease of spine M47.22 Cervical spondylosis M47.812 Myofascial pain M79.18
[2023-01-22 15:21] VITALS: BP 159/98; PULSE 88; O2SAT 97; BMI 19.8
== END 2023-01-22 15:44 | disposition home or self-care (01) ==
PROVIDERS: Visit Provider Nurse Practitioner Family
DX: M25.511 Pain in right shoulder (principal); M25.512 Pain in left shoulder; M47.22 Other spondylosis with radiculopathy, cervical region; M47.812 Spondylosis without myelopathy or radiculopathy, cervical region; M79.18 Myalgia, other site
CPT/HCPCS: 99213

== ENCOUNTER → 2023-01-22 15:13 | Outpatient (BNVA) | payer MEDICARE, MEDICAID, SELFPAY | PROVIDERS: Visit Provider Nurse Practitioner Family | DX: M25.511 Pain in right shoulder (principal); M25.512 Pain in left shoulder; M47.22 Other spondylosis with radiculopathy, cervical region; M79.18 Myalgia, other site | CPT/HCPCS: 99212 ==

== ENCOUNTER 2023-01-29 14:40 | Outpatient (AMB) | payer MEDICARE, MEDICAID, SELFPAY ==
--- NOTE | 2023-01-29 15:10 | A.SPINEOV_ITS ---
Intake Intake Visit Reasons: discuss treatment plan Intake Note: Mr. Coreas is here today to discuss treatment plan. Public Health Educator Required: No Allergies cephalexin Allergy (Unknown, Verified 01/22/23 15:21) Unknown keflex Allergy (Uncoded 08/22/22 10:39) Rash Assessment & Plan Assessment & Plan (1) Neck pain: Code(s): M54.2 - Cervicalgia (2) Cervical spinal stenosis: Code(s): M48.02 - Spinal stenosis, cervical region Plan Mrs Coreas is here in follow-up today. I previously saw her for neck pain about 3-4 months ago. Please see my note for the specifics of that problem. She was trying conservative therapies but unfortunately nothing seems to be helping. She had a spondylolisthesis at C3-4 amongst other severe degenerative changes. She has also been having pain radiating across the top of her shoulders. At this point she is fed up with the amount of pain she is in and the constant aching in her neck. Dr. Rodriguez and I reviewed her films again, and we think that a C3-4, C4-5 anterior cervical diskectomy and fusion would be a good choice for her. Specifically, we would choose lordotic interbody cages with an anterior plating in an attempt to restore some of the normal curvature of her neck. We offered the patient surgery and she wishes to proceed. Pt was given risk and benefits of surgery including but not limited to infection, hematoma , nerve injury,weakness,bowel/bladder injury, persistent pain, dysphagia, vocal hoarseness, recurrent neck pain as well as the option to continue with conservative treatment and patient wishes to proceed with surgery. Pt is aware they should stop their motrin, aspirin 7 days prior to surgery. All questions were answered to the best of our ability. If there is anything about this patients medical history that we have overlooked or concerns you have about us proceeding with surgery we would appreciate any input you can offer. Total amount of time spent in this visit was 20 minutes in discussion of symptoms, [] imaging results and subsequent plan of care Keith Rodriguez MD,PhD [facility] Coding Level of Care Code Est Pt Level 3 (65800) Diagnoses Neck pain M54.2 Cervical spinal stenosis M48.02
== END 2023-01-29 16:07 | disposition home or self-care (01) ==
PROVIDERS: Visit Provider Physician Assistant
DX: M54.2 Cervicalgia (principal); M48.02 Spinal stenosis, cervical region
CPT/HCPCS: 99213

== ENCOUNTER → 2023-01-29 14:40 | Outpatient (BNVA) | payer MEDICARE, MEDICAID, SELFPAY | PROVIDERS: Visit Provider Physician Assistant | DX: M54.2 Cervicalgia (principal); M48.02 Spinal stenosis, cervical region | CPT/HCPCS: 99212 ==

== ENCOUNTER 2023-03-01 14:15 | Outpatient (REF) | payer MEDICARE, MEDICAID, SELFPAY ==
--- NOTE | ~2023-03-01 | XR_ITS ---
EXAMINATION: XR SHOULDER, LEFT CLINICAL INFORMATION: Reason for Exam M25.511 - Pain in right shoulder COMPARISON: None TECHNIQUE: Four views of the shoulder. FINDINGS: No acute fracture or dislocation. Mild degenerative changes of the acromioclavicular joint with degenerative spurring. Soft tissues are unremarkable. XR/XR shoulder LT min 2V IMPRESSION: * Mild degenerative changes of the shoulder.
--- NOTE | ~2023-03-01 | XR_ITS ---
EXAMINATION: XR SHOULDER, RIGHT CLINICAL INFORMATION: Reason for Exam M25.511 - Pain in right shoulder COMPARISON: None TECHNIQUE: Four views of the shoulder. FINDINGS: No acute fracture or dislocation. Moderate degenerative changes of the shoulder worst involving the acromioclavicular joint with loss of joint space and degenerative spurring. Subcentimeter dense sclerotic lesion in the right humeral head in the absence of known malignancy possibly reflective of a bone island. Soft tissues are unremarkable. XR/XR shoulder RT min 2V IMPRESSION: 1. Moderate degenerative changes of the shoulder worst involving the acromioclavicular joint with loss of joint space and degenerative spurring. 2. Subcentimeter dense sclerotic lesion in the right humeral head in the absence of known malignancy possibly reflective of a bone island.
== END 2023-03-01 14:16 | disposition home or self-care (01) ==
LOC: HO.XRAY 14:15
PROVIDERS: Visit Provider Nurse Practitioner Family
DX: M25.511 Pain in right shoulder (principal); M25.512 Pain in left shoulder
CPT/HCPCS: 73030

== ENCOUNTER 2023-04-09 13:48 | Outpatient (AMB) | payer MEDICARE, MEDICAID, SELFPAY ==
--- NOTE | 2023-04-09 13:57 | MHC.OFFVIS ---
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 Patient reports ongoing pain for about a year. She has been seen in pain management for her shoulders. Patient reports both of her shoulders are equal to pain. 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 She complains of pain in her neck which radiates into her shoulders. She localizes her shoulder pain primarily to the anterior aspect, and says this is worse with motion or use of her shoulders. Occasionally she feels pain into the anterior aspect of her chest. Her pain has been present for ~1 year now, and is felt equally in both shoulders. She denies any prior shoulder treatment, but reports mild relief from a C-spine injection done by Pain Management on 08/22/22. She has cervical DJD, and is scheduled for a C3-C5 fusion on 04/18/23. She has a hx of Hepatitis A & chronic Hepatitis C. [facility] Medical History (Updated 04/04/23 @ 12:22 by Barbara Benitez RN) UTI (urinary tract infection) History of cerebral angiography Nicotine dependence, cigarettes, uncomplicated Bipolar 1 disorder Degenerative arthritis Chronic hepatitis C without mention of hepatic coma Irritable bowel syndrome Chronic headache disorder Hepatitis A antibody positive Subclinical hyperthyroidism Thyroid nodule Opioid dependence Chronic pelvic pain in female Renal cyst Essential hypertension Rupture of implant of left breast Hypothyroidism Osteoporosis Family history of liver cancer Family history of pancreatic cancer Abdominal pain, chronic, right upper quadrant Cervical spondylosis Compression fracture of T10 vertebra Surgical History (Updated 04/04/23 @ 12:07 by Barbara Benitez RN) Hx of colonoscopy History of thyroidectomy, total (~2021) History of breast implant History of History of appendectomy History of liver biopsy (~2006) Social History Household Members: Significant Other Housing: House Are you a primary career law clerk to a significant other at home: No Do you presently have visiting nurse or other home services: No 75 years or older and lives alone: No Patient Tobacco Use Status: Current everyday Tobacco user Tobacco use type: Cigarette Cigarettes Per Day: 1 Years Smoked: (onset 15yo, 1/2 ppd x 52yrs, now occasional cig - 25PYH) Second Hand Smoke Exposure: No Use of substances other than those prescribed or required for medical reasons: Yes Substance Use Type: Marijuana Substance Use Frequency: Daily Other Past Substance Use Problem:: Hx opiate use-now on Suboxone several years Review of Systems Const All systems reviewed & are unremarkable except as noted in HPI and below Physical Exam Const General: no acute distress, alert and awake Orientation/consciousness: patient oriented x3 HEENT Head: Yes normocephalic and Yes atraumatic Eyes EOM: EOMs intact bilaterally Resp Effort & Inspection: normal respiratory effort and able to speak in complete sentences Cardio Jugular venous distension: no JVD Skin General skin exam: turgor normal Rashes: no rashes Neuro General: patient oriented x3 Extrem Other: Bilateral shoulder: Normal to inspection. No ecchymosis, erythema, or edema. Full shoulder ROM in all planes. Negative cross-body reach on the right, Positive crtoss-body reach on the left. 4/5 empty can bilaterally. NVI. Psych Appearance: grossly normal Affect: normal affect Attitude: cooperative Results Reviewed Results Reviewed: X-rays of the right shoulder from 03/01/23 were reviewed by me, Nohelia Goetz PA-C, revealed no fractures or dislocations. There is a small lesion that suggest a bony island in the right shoulder Assessment & Plan Assessment & Plan (1) Cervical radiculopathy due to degenerative joint disease of spine: Code(s): M47.22 - Other spondylosis with radiculopathy, cervical region (2) Bilateral shoulder pain: Code(s): M25.511 - Pain in right shoulder; M25.512 - Pain in left shoulder Plan Mora is a 68 year old right hand dominant woman who was referred here by Pain Management to discuss her bilateral shoulder pain. She complains of pain in her neck which radiates into her shoulders. She localizes her shoulder pain primarily to the anterior aspect, and says this is worse with motion or use of her shoulders. Her pain has been present for ~1 year now, and is felt equally in both shoulders. She denies any prior shoulder treatment, but reports mild relief from a C-spine injection done by Pain Management on 08/22/22. She has cervical DJD, and is scheduled for a C3-C5 fusion on 04/18/23. She has a hx of Hepatitis A & chronic Hepatitis C. I discussed the role of PT and injection with the patient. However, she reports she has attended PT in the past for her back, with no relief, and is hesitant to attend PT for her shoulders. Due to her upcoming C-spine surgery on 04/18/23, we have decided to treat this conservatively and to see if this resolves her shoulder pain. If it does then no further intervention needed. However, if she continues to have shoulder pain, I'm happy to see her back to discuss cortisone injections. She can follow up prn. X-rays of the right shoulder from 03/01/23 were reviewed by me, Nohelia Goetz PA-C, revealed no fractures or dislocations. There is a small lesion that suggest a bony island in the right shoulder Patient Instructions: Scribed for Nohelia Goetz PA-C by Rupert Iqbal, medical doctor, on 04/09/23 at 2:10 PM EST. Coding Level of Care Code New Pt Level 4 (66677) Diagnoses Cervical radiculopathy due to degenerative joint disease of spine M47.22 Bilateral shoulder pain M25.511; M25.512
== END 2023-04-09 14:21 | disposition home or self-care (01) ==
PROVIDERS: Visit Provider Physician Assistant
DX: M25.511 Pain in right shoulder (principal); M25.512 Pain in left shoulder; M47.22 Other spondylosis with radiculopathy, cervical region
CPT/HCPCS: 99204; 99214

== ENCOUNTER → 2023-04-09 13:48 | Outpatient (BNVA) | payer MEDICARE, MEDICAID, SELFPAY | PROVIDERS: Visit Provider Physician Assistant | DX: M47.22 Other spondylosis with radiculopathy, cervical region (principal); M25.511 Pain in right shoulder; M25.512 Pain in left shoulder | CPT/HCPCS: 99202 ==

== ENCOUNTER 2023-04-18 08:43 | Day surgery (SDC) | payer MEDICARE, MEDICAID, SELFPAY ==
[2023-04-04 12:10] VITALS: BP 123/76; PULSE 72; RESP 16; O2SAT 97; BMI 21.7
--- NOTE | 2023-04-04 12:28 | P.CONAN_ITS ---
Documented by User: Milly English NP 04/17/23 09:07 HPI - Anesthesia Eval Consult details Narrative: 68yo F for C3-4,C4-5 Ant Cerv Disc w/ Fusion Multi, 04/18/23 Suboxone 4mg daily. Will continue periop No recent illness No CP/SOB [facility] 12/2022 with CP - saw PCP and dx with shoulder problems Current UTI - bactrim to start 04/04/23 Cerebral Angiogram done for incidental finding on MRI ~09/2022 at [facility]. No aneurysm, normal angiogram per [facility] documentation. Pt to follow annually. s/p thyroidectomy 09/2021 with GA. It was great PMFSH Active Problems Active Problems: All Active Problems (Updated 04/04/23 @ 12:22 by Barbara Benitez RN) Bilateral shoulder pain (Acute) Other malformations of precerebral vessels (Acute) Cervical spinal stenosis (Acute) Neck pain (Acute) Brain aneurysm (Acute) Cervical radiculopathy due to degenerative joint disease of spine (Acute) Multiple lung nodules on CT (Acute) Myofascial pain (Acute) Thoracic spine pain (Acute) Nicotine dependence, cigarettes, uncomplicated (Acute) Opioid dependence (Acute) Osteoporosis (Acute) Compression fracture of T10 vertebra (Chronic) Cervical spondylosis (Acute) Abdominal pain, chronic, right upper quadrant (Acute) Family history of liver cancer (Acute) Family history of pancreatic cancer (Acute) Past Medical History Medical History UTI (urinary tract infection) History of cerebral angiography Nicotine dependence, cigarettes, uncomplicated Bipolar 1 disorder Degenerative arthritis Chronic hepatitis C without mention of hepatic coma Irritable bowel syndrome Chronic headache disorder Hepatitis A antibody positive Subclinical hyperthyroidism Thyroid nodule Opioid dependence Chronic pelvic pain in female Renal cyst Essential hypertension Rupture of implant of left breast Hypothyroidism Osteoporosis Family history of liver cancer Family history of pancreatic cancer Abdominal pain, chronic, right upper quadrant Cervical spondylosis Compression fracture of T10 vertebra Family History Family history of problems with anesthesia: No Surgical History Surgical History Hx of colonoscopy History of thyroidectomy, total (~2021) History of breast implant History of History of appendectomy History of liver biopsy (~2006) History of Problems with Anesthesia: No Social History Social History Household Members: Significant Other Housing: House Are you a primary elderly caregiver to a significant other at home: No Do you presently have visiting nurse or other home services: No 75 years or older and lives alone: No Patient Tobacco Use Status: Current everyday Tobacco user Tobacco use type: Cigarette Cigarettes Per Day: 1 Years Smoked: (onset 15yo, 1/2 ppd x 52yrs, now occasional cig - 25PYH) Second Hand Smoke Exposure: No Substance Use Type: Marijuana Meds Allergies Allergy/AdvReac Type Severity Reaction Status Date / Time cephalexin Allergy Intermediate Rash Verified 04/09/23 14:06 lithium AdvReac Severe involuntary Verified 04/09/23 14:06 limb movements Home Medications Medication Instructions Recorded Confirmed Last Taken Type amlodipine 5 mg tablet 5 mg PO DAILY 02/20/22 04/18/23 04/18/23 History buprenorphine 8 mg-naloxone 2 mg 4 mg sublingual DAILY 02/20/22 04/18/23 04/17/23 History sublingual film (Suboxone) levothyroxine 75 mcg tablet 75 mcg PO DAILY 02/20/22 04/18/23 04/18/23 History tizanidine 2 mg tablet 2 mg PO TID PRN muscle spasm 02/20/22 04/04/23 Unknown History alendronate 70 mg tablet 70 mg PO QWEEK 08/24/22 04/04/23 Unknown History atorvastatin 20 mg tablet 20 mg PO DAILY 01/22/23 04/18/23 04/18/23 History dicyclomine 20 mg tablet 20 mg PO QID 04/04/23 04/04/23 Unknown History sulfamethoxazole 800 1 tab PO Q12H 04/04/23 04/04/23 Unknown History mg-trimethoprim 160 mg tablet (Bactrim DS) Exam Height,Weight and Vital Signs: Height 5 ft Weight 50.4 kg Last Vital Signs Pulse 72 04/04/23 12:10 Resp 16 04/04/23 12:10 BP 123/76 04/04/23 12:10 Pulse Ox 97 04/04/23 12:10 O2 Del Method Room Air 04/04/23 12:10 Pertinent Lab Results Pertinent Lab Results: Laboratory Tests 01/12/23 01/12/23 01/12/23 10:29 10:29 10:29 WBC 6.5 Hgb 13.2 Hct 38.8 Plt Count 282 PT INR Sodium 141 Potassium 3.9 Chloride 107 Carbon Dioxide 26 Anion Gap 12 BUN 17 H Creatinine 1.07 Calcium 9.7 Total Bilirubin 0.4 AST 19 ALT 10 Alkaline Phosphatase 51 Troponin I High Sens < 2.7 Total Protein 7.7 Albumin 4.5 01/12/23 01/12/23 10:39 10:39 WBC Hgb Hct Plt Count PT 11.8 INR 1.0 Sodium Potassium Chloride Carbon Dioxide Anion Gap BUN Creatinine Calcium Total Bilirubin AST ALT Alkaline Phosphatase Troponin I High Sens Total Protein Albumin Narrative Narrative: EKG 12/2022 Vent. Rate : 090 BPM Atrial Rate : 090 BPM P-R Int : 144 ms QRS Dur : 080 ms QT Int : 362 ms P-R-T Axes : 064 051 060 degrees QTc Int : 442 ms Normal sinus rhythm Possible Left atrial enlargement Nonspecific ST abnormality Abnormal ECG No previous ECGs available Airway Mallampati Class: II TM Dist: >3cm Neck ROM: Limited Loose/Missing/Broken Teeth: Yes (#24 small chip, molars pulled, #8&9 capped) Heart: RRR Lungs: CTAB Assessment and Plan Assessment Anesthesia Assessment: Anesthesia Plan Discussed, Smoking Cess. Discussed and PAT Visit Final Anesthetic Review Family History of Problems with Anesthesia: No History of Problems with Anesthesia: No Documented by User: Vidal Cerna MD 04/18/23 14:35 [facility] Past Medical History Medical History UTI (urinary tract infection) History of cerebral angiography Nicotine dependence, cigarettes, uncomplicated Bipolar 1 disorder Degenerative arthritis Chronic hepatitis C without mention of hepatic coma Irritable bowel syndrome Chronic headache disorder Hepatitis A antibody positive Subclinical hyperthyroidism Thyroid nodule Opioid dependence Chronic pelvic pain in female Renal cyst Essential hypertension Rupture of implant of left breast Hypothyroidism Osteoporosis Family history of liver cancer Family history of pancreatic cancer Abdominal pain, chronic, right upper quadrant Cervical spondylosis Compression fracture of T10 vertebra Surgical History Surgical History Hx of colonoscopy History of thyroidectomy, total (~2021) History of breast implant History of History of appendectomy History of liver biopsy (~2006) Social History Social History Household Members: Significant Other Housing: House Are you a primary elderly caregiver to a significant other at home: No Do you presently have visiting nurse or other home services: No 75 years or older and lives alone: No Patient Tobacco Use Status: Current everyday Tobacco user Tobacco use type: Cigarette Cigarettes Per Day: 1 Years Smoked: (onset 15yo, 1/2 ppd x 52yrs, now occasional cig - 25PYH) Second Hand Smoke Exposure: No Substance Use Type: Marijuana Meds Allergies Allergy/AdvReac Type Severity Reaction Status Date / Time cephalexin Allergy Intermediate Rash Verified 04/09/23 14:06 lithium AdvReac Severe involuntary Verified 04/09/23 14:06 limb movements Home Medications Medication Instructions Recorded Confirmed Last Taken Type amlodipine 5 mg tablet 5 mg PO DAILY 02/20/22 04/18/23 04/18/23 History buprenorphine 8 mg-naloxone 2 mg 4 mg sublingual DAILY 02/20/22 04/18/23 04/17/23 History sublingual film (Suboxone) levothyroxine 75 mcg tablet 75 mcg PO DAILY 02/20/22 04/18/23 04/18/23 History tizanidine 2 mg tablet 2 mg PO TID PRN muscle spasm 02/20/22 04/04/23 Unknown History alendronate 70 mg tablet 70 mg PO QWEEK 08/24/22 04/04/23 Unknown History atorvastatin 20 mg tablet 20 mg PO DAILY 01/22/23 04/18/23 04/18/23 History dicyclomine 20 mg tablet 20 mg PO QID 04/04/23 04/04/23 Unknown History sulfamethoxazole 800 1 tab PO Q12H 04/04/23 04/04/23 Unknown History mg-trimethoprim 160 mg tablet (Bactrim DS) Assessment and Plan Final Anesthetic Review NPO: Yes ASA Class: III Final Preanesthetic Review: No Changes in Pt Med Stat, Meds/Allgs Chart Reviewed, Consent Obtained/Reviewed and Anes Risks/Benef Reviewed Patient Risk: Intermediate Procedure Risk: Intermediate Anesthetic Plan Anesthetic Plan: GA Disposition: Standard PACU
[2023-04-18] VITALS (16 sets, daily range): BP systolic 113–165; BP diastolic 47–93; PULSE 84–110; RESP 16–24; TEMP 36.4–36.7; O2SAT 94–100; BMI 20.6
--- NOTE | ~2023-04-18 | FL_ITS ---
EXAMINATION: XR FLUOROSCOPY WITH IMAGES CLINICAL INFORMATION: C3-C4, C4-C5 anterior cervical discectomy with fusion. COMPARISON: None available. TECHNIQUE: Fluoroscopy Supervised By: Dr. Frantz Rodriguez. Fluoroscopy Time: 0.0 minutes. Cumulative Dose: 0.709 mGy. DAP: 0.0122 Gycm2. Images: 2. FINDINGS: Fluoroscopy guidance provided for ACDF from C3 to C5. FL/FL guidance in OR IMPRESSION: Fluoroscopy guidance for ACDF from C3 to C5.
--- NOTE | 2023-04-18 07:17 | MHC.SHP ---
Pre-Procedural Eval Section A Date of Service: 04/18/23 The patient is an INPATIENT: No Changes since office visit: No Cold of Flu in the past 2 weeks, No New Medical Problems, No Changes in Medication and No Patient answered all questions The History & Physical has been completed within 30 days and I have reviewed it.: No Section B Chief Complaint: Spinal stenosis, cervical region,Cervicaligia Allergies: Allergies Allergy/AdvReac Type Severity Reaction Status Date / Time cephalexin Allergy Intermediate Rash Verified 04/09/23 14:06 lithium AdvReac Severe involuntary Verified 04/09/23 14:06 limb movements Review of Systems Sugical H&P ROS: Negative: Constitution, Cardiovascular, Respiratory, Neurological, Psychiatric, Hem-Onc, Allergic/Immunologic, Gastrointestinal, Genitourinary, Musculoskeletal, Integumentary, Endocrine and Eyes/Ears/Nose/Throat Exam Surgical H&P Exam: Not Evaluated: HEENT, Not Evaluated: Heart, Not Evaluated: Lungs, Not Evaluated: Extremities, Not Evaluated: Abdomen, Not Evaluated: Skin and Not Evaluated: Neurological Plan Diagnosis/Plan: Unchanged I have reviewed the history and physical and performed a pertinent physical examination on my patient. No changes have occurred unless specified. C3-4, C4-5 anterior cervical diskectomy and fusion Time Spent With Patient Time: Total time managing care of this patient today __10__ minutes.
[2023-04-18] MEDS: Gabapentin 300 MG CAPSULE PO (09:31)
[2023-04-18] MEDS: vancomycin HCL 1,000 MG in 0.9 % Sodium Chloride 250 ML 270 MG IV (09:31)
[2023-04-18] MEDS: methocarbamoL 750 MG TABLET PO (09:31)
[2023-04-18] MEDS: Lactated Ringers 1,000 ML 100 ML IVCONT (09:32)
--- NOTE | 2023-04-18 11:03 | PM.DS ---
DS: Providers Provider Date of Service: 04/18/23 Primary care physician: Jaqueline Lind DS: Summary Time Attestation Discharge coordination time: Less than 30 minutes Quality: Safe Use of Opioids Does Pt have an Active Cancer Diagnosis on the Problem List?: No Quality: Stroke Does the patient have a stroke diagnosis?: No Physical Exam Vital Signs: Vital Signs: Last Vital Signs Temp 97.9 F 04/18/23 09:35 Pulse 84 04/18/23 09:35 Resp 16 04/18/23 09:35 BP 147/84 H 04/18/23 09:35 Pulse Ox 99 04/18/23 09:35 O2 Del Method Room Air 04/18/23 09:35 BMI result Body Mass Index 20.6 Discharge Plan Discharge Patient Disposition: Home, Self-Care Referrals: Jaqueline Lind [facility] [Primary Care Provider] - 1 Week Discharge Medications: New gabapentin 300 mg capsule 300 mg PO TID PRN (Reason: NERVE PAIN) Qty: 30 0RF Continued dicyclomine 20 mg Tablet 20 mg PO QID amlodipine 5 mg tablet 5 mg PO DAILY buprenorphine-naloxone [Suboxone] 8-2 mg film 4 mg sublingual DAILY tizanidine 2 mg tablet 2 mg PO TID PRN (Reason: muscle spasm) levothyroxine 75 mcg tablet 75 mcg PO DAILY alendronate 70 mg tablet 70 mg PO QWEEK atorvastatin 20 mg tablet 20 mg PO DAILY Held sulfamethoxazole-trimethoprim [Bactrim DS] 800-160 mg Tablet 1 tab PO Q12H Hold Instructions: Resume on 04/18/23. Continue as directed by outpatient prescriber Discharge Orders: Discharge Order (Routine); Ordered 04/18/23 Ordered By: Tom Campbell Diet: Advance to usual diet Activity on Discharge: As tolerated Activity Restrictions/Additional Instructions: After your spinal surgery we ask you to observe the following restrictions/guidelines: Activity: It is normal to feel some discomfort as you increase your activity, but that will improve with time. We ask you avoid heavy lifting or acitivities that cause pain. As a general rule, 8lbs is a safe limit for lifting right after surgery. Walk as much as you feel comfortable but not to exhaustion. You will feel extra tired the first few days after surgery. Stay well hydrated. It is OK to walk up and down stairs You may return to driving when you are back to normal functional capacity. If you have any concerns please check with office before driving. Return to work is specific to each patient and each surgery, so please speak with your doctor/PA at first follow up. Please bring paperwork such as FMLA at that time if you need it filled out. Medications: You are currently taking Suboxone (Buprenorphrine/Naloxone). Please continue this medication alongside over the counter pain medications for pain control. If you take blood thinner such as aspirin, Plavix, Coumadin, Effient, Eliquis etc for conditions such as Afib, DVT, Pulmonary embolus, coronary disease, stents etc please speak with your surgeon about specific details as to when you can resume these medications. You can resume NSAIDs on post op day 1 (eg: Motrin, Naproxen, etc). Follow up: Please call the office, , after surgery to arrange a 3 week follow up for wound check. Wound Care: You may remove your dressing on the first day after surgery. You may leave open to air. Please do not remove the steri strips underneath. they will fall off on their own in one week. IT IS NORMAL FOR THE WOUND TO OOZE OR BE BLOODY FOR A FEW DAYS AFTER SURGERY. IF THIS HAPPENS JUST PLACE NEW DRESSING OVER IT TO AVOID STAINING CLOTHES. You may shower on post op day # 1 We ask that you do not let the water soak the wound. If it does get wet, just towel dry lightly. Please do not scrub your incision or place any type of chemical/ointment on the wound. No tub baths, pools or jacuzzis for one month. If you have any leaking or redness from your wound, or fevers, please call the office.
--- NOTE | 2023-04-18 12:09 | W.PM.OPN ---
Operative Note Operative Note Date of Service: 04/18/23 Narrative: Preoperative Diagnosis: chronic neck pain; cervical spondylolisthesis C3-C4 and kyphosis Procedure: C3-C4, C4-[id number] discectomy, arthrodesis and implantation cage ; [id number] instrumentation ; local autograft; microscope Informed Consent was obtained for this operation. I have explained the nature, purpose and benefits of the operation. I have discussed the risks and benefit of the operation including possible complications or adverse events with patient/family. Alternative(s) were discussed with the patient with their relative benefits and risks as well as the consequences of not accepting the operation were included in obtaining consent. Surgeon: JON SARAH MD, PHD Procedure Assisted By: [] Description of Procedure: this 68-year-old female who suffer from chronic neck pain. Imaging shows ananterolisthesi C-C4 and kyphotic deformity. She was offered a 2 level anterior diskectomy fusion to reduce the spondylolisthesis and to restore the lordosis. The procedure complications were explained. The patient was consented. The patient was brought to the operating room and endotracheally intubated. The patient was put in supine position with slight extension of the neck. Prep and drape was done followed by timeout. A mid cervical incision was made followed by opening of the platysma. The prevertebral fascia was reached following the natural planes while the physician payroll assistant provided manual retraction. The prevertebral fascia was opened to expose the disc space. A spinal needle was placed in the disk space to confirm the correct level with xray. The longus colli muscles were released bilaterally and a self retaining retractor was inserted. An initial diskectomy was done of the C3-4 and C4-5 levels.Two Enigma pins were placed in the C3 and C4 vertebral bodies and distraction was give over the interspace. The discectomy was completed toward the posterior annulus of the disc. The microscope was brought in. The remainder of the discectomy was completed. The posterior ligament was opened and resected to expose the underlying dura. Osteophytes were resected from the body of C3 and C4 and saved for autograft. Bilateral foraminotomies were done. The endplates were prepared after which a 6 mm cage filled with autograft was inserted into the disc space. similar steps were taken for the C4-C5 disc space. A 6 mm cage filled autograft was inserted following completion of the diskectomy. A 26 mm anterior plate was locked down with 6 x 14 mm screws as anterior instrumentation. Final x-rays in AP and lateral projection showed good position of the interbody devices and anterior instrumentation. The physician payroll assistant took over. The Enigma pin was removed. Hemostasis was done. He closed the incision in 2 layers with a 3-0 Vicryl. Steri-Strips used to approximate incision. An OpSite with Tegaderm was used to cover the incision. All sponge and needle counts were correct. Patient was extubated and transported in stable is to recovery room. Anesthesia: General Estimated Blood Loss (ml): 10 mL Duration of Surgery: 80 minutes Postoperative Plan: Discharge home Complications: None
[2023-04-18] MEDS: HYDROmorphone HCl 0.5 MG/0.5 ML SYRINGE IVPUSH ×4 (12:17→12:48)
[2023-04-18] MEDS: oxyCODONE HCl Immed Release 5 MG TABLET 10 MG PO (12:48)
== END 2023-04-18 14:11 | disposition home or self-care (01) ==
PROVIDERS: Visit Provider Neurological Surgery
PROC: (CPT 22551; principal; 2023-04-18 11:40)
DX: M48.02 Spinal stenosis, cervical region (principal); G89.29 Other chronic pain; M54.2 Cervicalgia; M43.12 Spondylolisthesis, cervical region; M40.202 Unspecified kyphosis, cervical region; F11.20 Opioid dependence, uncomplicated; Z79.899 Other long term (current) drug therapy; Z98.890 Other specified postprocedural states; Z79.1 Long term (current) use of non-steroidal anti-inflammatories (NSAID); F17.210 Nicotine dependence, cigarettes, uncomplicated; Z88.1 Allergy status to other antibiotic agents; Z88.8 Allergy status to other drugs, medicaments and biological substances
CPT/HCPCS: 22551; 22552; 22853 ×2; 20936; 22845; C1713; J0131; J1170; J1805; J2250; J2405; J2704; J3010; J3370

== ENCOUNTER → 2023-04-18 08:43 | Outpatient (BNV) | payer MEDICARE, MEDICAID, SELFPAY | PROVIDERS: Visit Provider Neurological Surgery | DX: M54.2 Cervicalgia (principal); M48.02 Spinal stenosis, cervical region | CPT/HCPCS: 20936; 22551; 22552; 22845; 22853; 99499 ==

== ENCOUNTER 2023-10-14 15:48 | Outpatient (REF) | payer MEDICARE, MEDICAID, SELFPAY ==
--- NOTE | ~2023-10-14 | CT_ITS ---
EXAMINATION: CT LOW-DOSE SCREENING CHEST WITHOUT CONTRAST CLINICAL INFORMATION: Nicotine dependence, cigarettes, uncomplicated. The patient is a current smoker with a 50 pack-year history of smoking. COMPARISON: CT chest 05/16/2022. TECHNIQUE: Multidetector volumetric CT imaging of the chest is performed on a Siemens SOMATOM Definition scanner without contrast using low dose technique. Additional 2D coronal and sagittal reformatted images and axial 3D maximum intensity projection (MIP) images are generated on the CT workstation. This CT examination was performed using dose optimization techniques as appropriate, variously including the following: *Automated exposure control *Adjustment of mA and/or kV according to patient size (this includes techniques or standardized protocols for targeted exams where dose is matched to indication/reason for exam; i.e. extremities or head) *Use of iterative reconstruction technique TOTAL EXAM DLP: 32 mGy-cm. CTDIvol: 1.04 mGy. FINDINGS: PULMONARY NODULES: Small pulmonary nodules are seen with at least 9 measured and lerma images of all have been saved. The largest measures 3 mm in size. There is no new, increasing-sized or suspicious pulmonary nodule. LUNGS: Lungs bilaterally symmetrically expanded. There is mild emphysema with mild bronchial thickening without bronchiectasis. There is a new minimal area of atelectasis present in the posterior basal segment of the right lower lobe. No effusion or pneumothorax. Central airways patent. MEDIASTINUM: No mediastinal, hilar or axillary adenopathy or free fluid collection. CORONARY ARTERY CALCIFICATION: None visualized on this study. THYROID GLAND: Unremarkable to the extent seen. CARDIOVASCULAR STRUCTURES: Aortic and heart size normal. No pericardial effusion. CHEST WALL/AXILLA: Bilateral breast implants are present. UPPER ABDOMEN: Included portions of the solid organs in the upper abdomen unremarkable on noncontrast imaging. OSSEOUS STRUCTURES: No suspicious focal findings. CT/CT lung screening IMPRESSION: 1. Small stable pulmonary nodules with no suspicious nodule. 2. Mild emphysema. 3. Incidental findings (S category): No incidental findings. ASSESSMENT: 1. Lung-RADS Category 2: Benign appearance or behavior of nodules. N/A RECOMMENDATION: Continued routine annual low-dose CT lung screening in 1 year is recommended. An order for CT CHEST LOW DOSE CANCER SCREENING ([id number]) can be placed.
== END 2023-10-14 15:49 | disposition home or self-care (01) ==
LOC: HO.CT 15:48
PROVIDERS: Visit Provider Physician Assistant Medical
DX: Z12.2 Encounter for screening for malignant neoplasm of respiratory organs (principal); F17.210 Nicotine dependence, cigarettes, uncomplicated
CPT/HCPCS: 71271

== ENCOUNTER 2024-10-14 16:21 | Outpatient (REF) | payer MEDICARE, MEDICAID, SELFPAY ==
--- NOTE | ~2024-10-14 | CT_ITS ---
CLINICAL HISTORY: F17.210 - Nicotine dependence, cigarettes, uncomplicated CT lung cancer screening (LDCT) Comparison: CT/REG/DC/SR - CT LUNG SCREENING - 10/14/23 15:57 EDT Technique: Axial CT images of the chest using low-dose technique. Referring provider counseled the patient on shared decision-making for LDCT screening. Additional counseling was provided on smoking cessation. Effective radiation dose total: DLP 21.1 mGycm, CTDIvol 0.7 mGy. Findings: There is no mediastinal, hilar, or axillary lymphadenopathy. The heart is normal in size. There is no pericardial effusion. 4 mm ground-glass right upper lobe nodule (axial image 14 of series 3), 3 mm right middle lobe nodule, several 2-3 mm subpleural right lower lobe nodules, and 2 mm subpleural left lower lobe nodule are unchanged. Mild centrilobular emphysema is noted. Limited examination of the upper abdomen demonstrates no significant abnormality. Mild degenerative changes are seen in the spine. No acute osseous abnormality is identified. No aggressive lytic or blastic lesion is seen. Impression: Several bilateral lung nodules measuring up to 4 mm, unchanged (Lung Rads 2). Recommend continued annual low-dose screening CT chest in 12 months. Category 1: Normal; continue annual screening Category 2: Benign appearance or behavior, continue annual screening Category 3: Probably benign, [address] recommended Category 4A: Suspicious, [address] recommended; may consider PET/CT Category 4B: Suspicious, Additional diagnostics and/or tissue sampling recommended Category 4X: Suspicious, Additional diagnostics and/or tissue sampling recommended Category 0: Recalls (incomplete screen due to Incomplete coverage, Noise, Respiratory motion, Expiration, Obscured by acute abnormality) This document has been electronically signed by: Juvenal Hearn on 10/24/2024 09:10:51
--- OUTSIDE RECORDS SUMMARY | 2024-10-14 18:09 | XMS_ITS | Referral Summary ---
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 Name Role Phone No, Referring Primary Care Provider Unavailabl e Allergies Active Allergy Reactions Criticality Noted Date Comments Cephalexin Rash Medium 12/21/2022 [place] Unknown 12/03/2022 Medications amLODIPine (NORVASC) 5 mg tablet SMARTSI Tablet(s) By Mouth Daily 08/14/2022 Active levothyroxine (SYNTHROID, LEVOTHROID) 75 mcg tablet SMARTSI Tablet(s) By Mouth Daily 10/19/2022 Active Active Problems No known active problems Social History Tobacco Use Types Packs/Day Years Used Date Smoking Tobacco: Unknown Tobacco Cessation:Counseling Given: Not Answered Comments Unknown Sex and Gender Information Value Date Recorded Sex Assigned at Female 11/26/2022 5:21 PM EDT Legal Sex Female 11:59 PM EDT Gender Identity Not on file Sexual Orientation Not on file Last Filed Vital Signs Vital Sign Reading Time Taken Comments Blood Pressure 148/97 12/21/2022 4:19 PM EDT Pulse 85 12/21/2022 4:19 PM EDT Temperature 36.8 C (98.3 F) 12/21/2022 7:37 AM EDT Respiratory Rate 12 12/21/2022 1:30 PM EDT Oxygen Saturation 100% 12/21/2022 4:19 PM EDT Inhaled Oxygen Concentration - - Weight 49.9 kg (110 lb) 12/21/2022 7:37 AM EDT Height 154.9 cm (5' 1 ) 12/21/2022 7:37 AM EDT Body Mass Index 20.78 12/21/2022 7:37 AM EDT Plan of Treatment Not on file Insurance [facility] Care Teams Distillery Laborer Relationship Specialty Start Date End Date No, Referring PCP - General 11/26/22
== END 2024-10-14 16:22 | disposition home or self-care (01) ==
LOC: HO.CT 16:21
PROVIDERS: PCP Student in an Organized Health Care Education/Training Program; Visit Provider Physician Assistant Medical
DX: Z12.2 Encounter for screening for malignant neoplasm of respiratory organs (principal); F17.210 Nicotine dependence, cigarettes, uncomplicated
CPT/HCPCS: 71271

== ENCOUNTER → 2024-10-14 16:22 | Outpatient (BNV) | payer MEDICARE, MEDICAID, SELFPAY | PROVIDERS: PCP Student in an Organized Health Care Education/Training Program; Visit Provider Radiology Vascular & Interventional Radiology | DX: F17.210 Nicotine dependence, cigarettes, uncomplicated (principal) | CPT/HCPCS: 71271 ==